=== PATIENT | female | born 1960 | race Caucasian/White ===

== ENCOUNTER 2017-03-06 09:07 | Emergency (ER) | payer MEDICAID, OTHER ==
[~2017-03-06] VITALS: Ht 167.6 cm; Wt 85.7 kg
[~2017-03-06 09:07] MED LIST: BUPR-173 PO; GLIP5TAB3 PO; LOVA40TA2 PO; METF10002 PO; SERT100T PO; SITA100T PO
[2017-03-06 09:14] VITALS: BP 110/70
[2017-03-06] MEDS ORDERED: INSU100V8 SQ (09:38)
== END 2017-03-06 10:22 | disposition home or self-care (01) ==
LOC: ED 10:10
DX: M25.461 Effusion, right knee (principal); M25.561 Pain in right knee; G89.11 Acute pain due to trauma; X58.XXXA Exposure to other specified factors, initial encounter; Y93.89 Activity, other specified; Y92.009 Unspecified place in unspecified non-institutional (private) residence as the place of occurrence of the external cause; Y99.8 Other external cause status; E11.9 Type 2 diabetes mellitus without complications

== ENCOUNTER 2017-07-06 12:34 | Emergency (ER) | payer MEDICAID ==
[~2017-07-06] VITALS: Ht 165.1 cm; Wt 87.7 kg
[~2017-07-06 12:34] MED LIST changes: +INSU100V8 SQ
[2017-07-06] MEDS ORDERED: HYDROcodone/APAP 5/325 TABLET ONE (13:53)
[2017-07-06] MEDS ORDERED: KETOROLAC 30 MG/1 ML ONE (13:53)
[2017-07-06] MEDS ORDERED: KETOROLAC 30 MG/1 ML IM ONE (14:00)
[2017-07-06] MEDS ORDERED: HYDROcodone/APAP 5/325 TABLET PO ONE (14:00)
[2017-07-06 14:40] VITALS: BP 116/65
== END 2017-07-06 14:42 | disposition home or self-care (01) ==
LOC: ED 14:22
DX: M25.461 Effusion, right knee (principal); E11.9 Type 2 diabetes mellitus without complications; Z90.49 Acquired absence of other specified parts of digestive tract
CPT/HCPCS: 73564; 96372; 99284; J1885